=== PATIENT | female | born 1950 | race Caucasian/White ===

== ENCOUNTER 2017-06-29 10:18 | Outpatient (CLI) | payer MEDICARE, OTHER | END 2017-06-29 10:19 | disposition home or self-care (01) | LOC: BICRAD 10:18 | PROVIDERS: ATTEND Internal Medicine Rheumatology | DX: M06.4 Inflammatory polyarthropathy (principal); M17.0 Bilateral primary osteoarthritis of knee; M81.0 Age-related osteoporosis without current pathological fracture ==

== ENCOUNTER 2017-07-02 09:01 | Outpatient (CLI) | payer MEDICARE, OTHER | END 2017-07-02 09:02 | disposition home or self-care (01) | LOC: BICMAMMO 09:01 | PROVIDERS: ATTEND Internal Medicine Rheumatology | DX: M81.0 Age-related osteoporosis without current pathological fracture (principal); M85.859 Other specified disorders of bone density and structure, unspecified thigh | CPT/HCPCS: 77080 ==

== ENCOUNTER 2017-10-10 17:02 | Emergency (ER) | payer MEDICARE, OTHER ==
--- NOTE | 2017-10-10 18:22 | CT ---
CT OF THE BRAIN WITHOUT CONTRAST: 10/10/17 INDICATION: History of headache. COMPARISON: None. FINDINGS/IMPRESSION: No acute infarct, hemorrhage, or hydrocephalus is present. Septum pellucidum and third ventricle are midline. Skull and extracranial soft tissues appear within normal limits. POS: [facility]
[2017-10-10] MEDS ORDERED: Metoclopramide HCl 10 MG/2 ML VIAL ONE (18:36)
[2017-10-10] MEDS ORDERED: diphenhydrAMINE 50 MG/ML VIAL ONE (18:36)
[2017-10-10 18:39] LABS: #Basophils 0.1 thou/uL (0.0-0.2); #Eosinphils 0.1 thou/uL (0.0-0.7); #Lymphocytes 2.2 thou/uL (1.20-3.40); #Monocytes 0.7 thou/uL (0.11-0.59); #Neutrophils 6.9 thou/uL (1.40-6.50); %Basophils 0.5 % (0.0-1.0); %Eosinophils 0.5 % (0.0-10.0); %Lymphocytes 22.3 % (21.0-51.0); %Monocytes 7.3 % (0.0-10.0); %Neutrophils 69.3 % (42.0-75.0); Hemoglobin 11.4 g/dL (12.0-16.0); Mean Corpuscular Hemoglobin 33.4 pg (27.0-31.0); Mean Corpuscular Volume 95.5 fL (78.0-98.0); Mean Platelet Volume 7.5 fL (7.4-10.4); Platelet Count 371 thou/uL (130-400); RBC Distribution Width 13.7 % (11.5-14.5); Red Blood Cell (RBC) Count 3.42 mill/uL (4.20-5.40)
[2017-10-10 18:51] LABS: Bilirubin Negative (Negative); Blood, Urine Negative (Negative); Clarity CLOUDY (Clear); Glucose, Urine (Dipstick) Negative (Negative); Leukocyte Negative (Negative); Nitrite Negative (Negative); Protein, Urine (Dipstick) Negative (Neg-Trace); Specific Gravity, Urine 1.007 (1.002-1.036); Urobilinogen 0.2 mg/dL (0.2-1.0)
[2017-10-10 19:00] LABS: ALT (SGPT) 13 U/L (8-55); AST (SGOT) 25 U/L (5-34); Albumin 4.5 g/dL (3.4-4.8); Alkaline Phosphatase 82 U/L (40-150); Anion Gap 12 mmol/L (10-20); BUN (Urea Nitrogen) 17 mg/dL (9.8-20.1); Bilirubin, Total 0.5 mg/dL (0.2-1.2); CK (CPK) 33 U/L (29-168); Calc. Creatinine Clearance 0 mL/min (70-130); Calcium 9.8 mg/dL (7.8-10.44); Carbon Dioxide 24 mmol/L (23-31); Chloride 103 mmol/L (98-107); Estimated GFR-MDRD 71; Globulin 3.3 g/dL (2.4-3.5); Glucose 114 mg/dL (80-115); Potassium 3.9 mmol/L (3.5-5.1); Protein, Total 7.8 g/dL (6.0-8.3); Sodium 135 mmol/L (136-145)
[2017-10-10 19:06] LABS: Troponin I Less than 0.010 ng/mL (< 0.028)
--- NOTE | 2017-10-10 20:17 | RAD ---
AP VIEW OF THE CHEST: 10/10/17 INDICATION: Dizziness and blurred vision. FINDINGS: Chronic lung changes are stable. Metallic fragments overlying the left chest wall is similar. Cardiom egaly is similar. Postsurgical changes of the cervical spine with thoracolumbar scoliosis is similar. No acute osseous abnormality is evident. IMPRESSION: No acute abnormality. POS: [facility]
== END 2017-10-10 22:19 | disposition home or self-care (01) ==
LOC: ERS 17:02
DX: E86.0 Dehydration (principal); F17.210 Nicotine dependence, cigarettes, uncomplicated; Z79.899 Other long term (current) drug therapy
CPT/HCPCS: 70450; 71045; 80053; 81003; 82553; 84484; 85025; 87086; 96361; 96374; 96375; J1200; J2765

== ENCOUNTER 2017-10-19 10:52 | Outpatient (CLI) | payer MEDICARE, OTHER ==
--- NOTE | 2017-10-19 12:23 | CT ---
CT CHEST WITHOUT CONTRAST PULMONARY LUNG SCREENING: HISTORY: Z12.2, screening for lung cancer. COMPARISON: Chest radiograph from 10/10/2017. CT chest from 04/05/2016. FINDINGS Lung screening (Lung-RADS): Negative. No suspicious pulmonary nodules per lung-RADS criteria. Lung-RADS category S-Negative. No abnormal findings requiring urgent additional evaluation. Pulmonary incidentals: There is progressive peripheral honeycombing with an apical basilar gradient. Worsening peripheral interstitial thickening. There is moderate emphysema. Other incidentals: Pulmonary trunk size at the upper limits of normal, measuring 3 cm. Aortic conto ur is nonaneurysmal. No pericardial effusion. Moderate atherosclerotic plaque of the aorta. Incomplete evaluation of ACDF hardware. Area of sclerosis in the right anterior fifth rib is new, li al healing fracture. There are radiopacities along the left hemithorax and chest wall, unchanged. No thoracic spine compression fracture. IMPRESSION: 1. Lung-RADS category 1-Negative. Recommend continued annual screening with low dose CT in 12 month s. 2. Lung-RADS category S-Negative. No significant incidental findings requiring urgent additional wo rkup. POS: [facility]
== END 2017-10-19 10:53 | disposition home or self-care (01) ==
LOC: CT 10:52
PROVIDERS: ATTEND Family Medicine
DX: F17.210 Nicotine dependence, cigarettes, uncomplicated (principal)
CPT/HCPCS: G0297

== ENCOUNTER 2018-01-31 09:42 | Outpatient (CLI) | payer MEDICARE, OTHER | END 2018-01-31 09:43 | disposition home or self-care (01) | LOC: BICMAMMO 09:42 | PROVIDERS: ATTEND Obstetrics & Gynecology | DX: Z12.31 Encounter for screening mammogram for malignant neoplasm of breast (principal); Z85.41 Personal history of malignant neoplasm of cervix uteri; Z80.3 Family history of malignant neoplasm of breast | CPT/HCPCS: 77063; 77067 ==

== ENCOUNTER 2018-11-08 08:58 | Outpatient (CLI) | payer MEDICARE, OTHER ==
--- NOTE | 2018-11-08 11:32 | CT ---
CT PULMONARY LUNG SCAN: INDICATION: Low dose lung cancer screening CT with a history of smoking for over 30 years. Quit almost 1 year ag o. COMPARISON: Lung cancer screening CT dated 10/19/2017 and 04/05/2016. FINDINGS: There is a new 7.4 mm spiculated pulmonary nodule within the posterior segment of the right upper lob e on image 36 of series 2. The moderate to severe paraseptal and centrilobular emphysema is stable. No additional suspicious pulmonary nodule is evident. There is an area of subsegmental volume loss within the left lower lobe. There are coronary artery thoracic aortic calcifications. Adrenal gland s are within normal limits. No acute osseous abnormality is evident. IMPRESSION: Lung RADS category 3 - positive: indeterminate requiring low-dose CT followup. There is a new solid nodule measuring 7 mm within the right upper lobe. RECOMMENDATION: Low dose CT followup in 3 months. POS: [facility]
== END 2018-11-08 08:59 | disposition home or self-care (01) ==
LOC: CT 08:58
PROVIDERS: ATTEND Family Medicine
DX: Z00.00 Encounter for general adult medical examination without abnormal findings (principal); F17.210 Nicotine dependence, cigarettes, uncomplicated; R91.1 Solitary pulmonary nodule
CPT/HCPCS: G0297

== ENCOUNTER 2019-02-04 10:03 | Outpatient (CLI) | payer MEDICARE, OTHER ==
--- NOTE | 2019-02-04 11:58 | CT ---
LOW DOSE CT SCAN OF THE CHEST WITHOUT IV CONTRAST FOR LUNG CANCER SCREENING: Date: 02/04/19 HISTORY: Smoking for over 30 years. COMPARISON: 11/08/18. FINDINGS: The 7 mm pulmonary nodule in the posterior segment of the right upper lobe on image 36, series 2, is stable. No new nodular densities are seen. Moderate to severe paraseptal and centrilobular emphysema is again seen. Peripheral honeycombing is r edemonstrated. No pleural or pericardial effusions are seen. There are vascular calcifications without evidence of a neurysmal dilatation of the abdominal aorta. There are degenerative changes in the spine. IMPRESSION: Lung-RADS Category 3 - Probably benign. RECOMMENDATION: A 6 month follow-up LDCT is recommended. POS: [facility]
== END 2019-02-04 10:04 | disposition home or self-care (01) ==
LOC: CT 10:03
PROVIDERS: ATTEND Family Medicine
DX: F17.210 Nicotine dependence, cigarettes, uncomplicated (principal); R91.1 Solitary pulmonary nodule
CPT/HCPCS: G0297

== ENCOUNTER 2019-02-05 13:57 | Outpatient (CLI) | payer MEDICARE, OTHER ==
--- NOTE | 2019-02-05 13:19 | MMO ---
Bilateral MAMMO Bilat Screen [facility]. CLINICAL HISTORY: Patient is 68 years old and is seen for screening. VIEWS: The views performed were: bilateral craniocaudal with tomosynthesis and bilateral mediolateral oblique with tomosynthesis. FILMS COMPARED: The present examination has been compared to prior imaging studies performed at [facility] on 01/01/2015, 01/03/2016, 01/18/2017 and 01/31/2018. This study has been interpreted with the assistance of computer-aided detection. MAMMOGRAM FINDINGS: The breasts are heterogeneously dense, which could obscure a lesion on mammography. There are stable benign appearing calcifications seen in the right breast. There are no suspicious masses, suspicious calcifications, or new areas of architectural distortion. IMPRESSION: THERE IS NO MAMMOGRAPHIC EVIDENCE OF MALIGNANCY. A ROUTINE FOLLOW-UP MAMMOGRAM IN 1 YEAR IS RECOMMENDED. THE RESULTS OF THIS EXAM WERE SENT TO THE PATIENT. ACR BI-RADS Category 2 - Benign finding MAMMOGRAPHY NOTE: 1. A negative mammogram report should not delay a biopsy if a dominant of clinically suspicious mass is present. 2. Approximately 10% to 15% of breast cancers are not detected by mammography. 3. Adenosis and dense breasts may obscure an underlying neoplasm. Reported by: RUPA BURT MD Electonically Signed: [id number]
== END 2019-02-05 13:58 | disposition home or self-care (01) ==
LOC: BICMAMMO 13:57
PROVIDERS: ATTEND Obstetrics & Gynecology
DX: Z12.31 Encounter for screening mammogram for malignant neoplasm of breast (principal)
CPT/HCPCS: 77063; 77067

== ENCOUNTER 2019-04-28 13:23 | Outpatient (CLI) | payer MEDICARE, OTHER | END 2019-04-28 13:24 | disposition home or self-care (01) | LOC: ULT 13:23 | PROVIDERS: ATTEND Family Medicine | DX: R01.1 Cardiac murmur, unspecified (principal); I08.1 Rheumatic disorders of both mitral and tricuspid valves | CPT/HCPCS: 93306 ==

== ENCOUNTER 2019-09-23 10:47 | Outpatient (CLI) | payer MEDICARE, OTHER ==
--- NOTE | 2019-09-23 11:40 | CT ---
LOW DOSE CT SCAN OF CHEST WITHOUT IV CONTRAST FOR LUNG CANCER SCREENING: Date: 09/23/2019 HISTORY: Patient has a 38 year, 1 pack per day, smoking history. Quit smoking 3 years ago. Nicotine dependence . COMPARISON: 02/04/2019. FINDINGS: The 7.0 mm nodule in the posterior segment of the right upper lobe on image 43, series 2, is stable. No new nodular densities are seen. Moderate to severe paraseptal and centrilobular emphysema is again seen. Peripheral honeycombing is r edemonstrated. No pleural or pericardial effusions are seen. There are vascular calcifications without evidence of a neurysmal dilatation of the abdominal aorta. There are degenerative changes in the spine. IMPRESSION: Lung-RADS 3 - Probably benign. RECOMMENDATION: A 6 month follow-up LDCT is recommended. POS: [facility]
== END 2019-09-23 10:48 | disposition home or self-care (01) ==
LOC: CT 10:47
PROVIDERS: ATTEND Family Medicine
DX: Z12.2 Encounter for screening for malignant neoplasm of respiratory organs (principal); F17.210 Nicotine dependence, cigarettes, uncomplicated; R91.1 Solitary pulmonary nodule
CPT/HCPCS: G0297

== ENCOUNTER 2020-02-09 10:06 | Outpatient (CLI) | payer MEDICARE, OTHER ==
--- NOTE | 2020-02-09 11:18 | ULT ---
BILATERAL CAROTID DUPLEX ULTRASOUND: HISTORY: Left carotid bruit TECHNIQUE: Grayscale, color-flow and spectral Doppler ultrasound imaging of the extracranial carotid artery syst ems was performed bilaterally. FINDINGS: There is plaque formation in the left proximal ICA and carotid bulb The peak systolic velocity in the right ICA measures 100 cm/s with an end-diastolic velocity of 28 cm /s and a systolic ratio of 0.94. The peak systolic velocity in the left ICA measures 127 cm/s with an end-diastolic velocity of 45 cm/s and a systolic ratio of 1.31. Flow in both vertebral arteries remains antegrade. IMPRESSION: Moderate (50-69%) stenosis of the left ICA
--- NOTE | 2020-02-09 11:40 | MMO ---
Bilateral MAMMO Bilat Screen [facility]. CLINICAL HISTORY: Patient is 69 years old and is seen for screening. The patient has the following family history of breast cancer: maternal aunt, malignant (generic). The patient has no personal history of cancer. VIEWS: The views performed were: bilateral craniocaudal with tomosynthesis and bilateral mediolateral oblique with tomosynthesis. FILMS COMPARED: The present examination has been compared to prior imaging studies performed at [facility] on 01/03/2016, 01/18/2017, 01/31/2018 and 02/05/2019. This study has been interpreted with the assistance of computer-aided detection. MAMMOGRAM FINDINGS: The breasts are heterogeneously dense, which could obscure a lesion on mammography. Benign calcifications are noted bilaterally. There are no suspicious masses, suspicious calcifications, or new areas of architectural distortion. IMPRESSION: THERE IS NO MAMMOGRAPHIC EVIDENCE OF MALIGNANCY. A ROUTINE FOLLOW-UP MAMMOGRAM IN 1 YEAR IS RECOMMENDED. THE RESULTS OF THIS EXAM WERE SENT TO THE PATIENT. ACR BI-RADS Category 2 - Benign finding MAMMOGRAPHY NOTE: 1. A negative mammogram report should not delay a biopsy if a dominant of clinically suspicious mass is present. 2. Approximately 10% to 15% of breast cancers are not detected by mammography. 3. Adenosis and dense breasts may obscure an underlying neoplasm. Reported by: PRASHANTH JOYNER MD Electonically Signed: [id number]
== END 2020-02-09 10:07 | disposition home or self-care (01) ==
LOC: BICULT 10:06
PROVIDERS: ATTEND Family Medicine
DX: Z12.31 Encounter for screening mammogram for malignant neoplasm of breast (principal); R09.89 Other specified symptoms and signs involving the circulatory and respiratory systems; I65.22 Occlusion and stenosis of left carotid artery; Z80.3 Family history of malignant neoplasm of breast
CPT/HCPCS: 77063; 77067; 93880

== ENCOUNTER 2020-07-11 16:47 | Inpatient (IN) | payer MEDICARE, OTHER ==
[2020-07-11] MEDS ORDERED: HYDROcodone/Acetaminophen 5/325 mg Tablet ONE (17:26)
[2020-07-11] MEDS ORDERED: Morphine 4 MG/ML VIAL ONE ×2 (17:43→22:02)
[2020-07-11 18:15] LABS: #Basophils 0.1 thou/uL (0.0-0.2); #Eosinphils 0.1 thou/uL (0.0-0.7); #Lymphocytes 2.5 thou/uL (1.20-3.40); #Monocytes 1.1 thou/uL (0.11-0.59); #Neutrophils 8.9 thou/uL (1.40-6.50); %Basophils 0.8 % (0.0-1.0); %Eosinophils 1.1 % (0.0-10.0); %Lymphocytes 19.8 % (21.0-51.0); %Monocytes 8.3 % (0.0-10.0); Hemoglobin 9.3 g/dL (12.0-16.0); Mean Corpuscular HGB CONC 32.9 g/dL (32.0-36.0); Mean Corpuscular Hemoglobin 31.3 pg (27.0-31.0); Mean Corpuscular Volume 94.9 fL (78.0-98.0); Mean Platelet Volume 7.4 fL (7.4-10.4); Platelet Count 409 thou/uL (130-400); RBC Distribution Width 14.3 % (11.5-14.5); Red Blood Cell (RBC) Count 2.97 mill/uL (4.20-5.40); White Blood Cell (WBC) Count 12.7 thou/uL (4.8-10.8)
[2020-07-11 18:34] LABS: Anion Gap 14 mmol/L (10-20); BUN (Urea Nitrogen) 17 mg/dL (9.8-20.1); CRP (Inflammatory) 4.17 mg/dL (= or < 0.5); Calc. Creatinine Clearance 0 mL/min (70-130); Calcium 10.2 mg/dL (7.8-10.44); Carbon Dioxide 23 mmol/L (23-31); Chloride 103 mmol/L (98-107); Glucose 92 mg/dL (83-110); Potassium 3.4 mmol/L (3.5-5.1); Sodium 137 mmol/L (136-145)
[2020-07-11] MEDS ORDERED: Bupivacaine 0.5% 10 ML VIAL ONE (20:11)
[2020-07-11] MEDS ORDERED: cefTRIAXone\\ROCEPHIN 1 GM VIAL ONE (21:59)
[2020-07-11] MEDS ORDERED: Sodium Chloride 0.9% 100 ML ONE (21:59)
[2020-07-11] MEDS ORDERED: Calcium Carbonate 500 MG ChewTAB PO PRN (22:02)
[2020-07-11] MEDS ORDERED: Senokot S 8.6-50 MG TAB PO PRN (22:02)
[2020-07-11] MEDS ORDERED: Acetaminophen 325 MG TAB PO PRN (22:02)
[2020-07-11] MEDS ORDERED: Bisacodyl 10 MG SUPP PR PRN (22:02)
[2020-07-11] MEDS ORDERED: Ondansetron PF 4 MG/2 ML Vial IVP PRN (22:02)
[2020-07-11] MEDS ORDERED: Guaifenesin DM 100-10/5 ML UDCUP PO PRN (22:02)
[2020-07-11] MEDS ORDERED: Ondansetron ODT 4 MG TAB PO PRN (22:02)
[2020-07-11] MEDS ORDERED: Morphine 4 MG/ML VIAL SLOW IVP PRN (22:04)
[2020-07-11] MEDS ORDERED: Vancomycin 1.5 GRAM/300 ML BAG 1.5 GM in Premix Bag 1 BAG IVPB SCH (22:15)
[2020-07-11] MEDS ORDERED: cefTRIAXone\\ROCEPHIN 1 GM in Sodium Chloride 0.9% 100 ML IVPB SCH (22:30)
[2020-07-11 22:31] LABS: Body Fluid Source Synovial Fluid
[2020-07-11 22:32] LABS: BF Color Red; Clarity Cloudy/Turbid (Clear); Tube # SYRINGE
[2020-07-11 22:59] LABS: BF Segmented Neutrophils 95 %; Cell Count Non Hematic 5 %
[2020-07-11] MEDS: HYDROcodone/Acetaminophen 5/325 mg Tablet PO PRN (23:37)
[2020-07-11 23:49] VITALS: BMI 23.2
[2020-07-12] MEDS ORDERED: Morphine 4 MG/ML VIAL SLOW IVP PRN (00:11)
[2020-07-12] MEDS: Morphine 4 MG/ML VIAL SLOW IVP PRN ×3 (01:03→21:33)
[2020-07-12] MEDS: Zolpidem Tartrate 5 MG TAB PO PRN (01:47)
[2020-07-12 06:46] LABS: #Lymphocytes 1.7 thou/uL (1.20-3.40); #Monocytes 1.3 thou/uL (0.11-0.59); #Neutrophils 13.8 thou/uL (1.40-6.50); %Basophils 0.2 % (0.0-1.0); %Eosinophils 0.1 % (0.0-10.0); %Lymphocytes 9.9 % (21.0-51.0); %Neutrophils 81.8 % (42.0-75.0); Hemoglobin 9.1 g/dL (12.0-16.0); Mean Corpuscular HGB CONC 32.8 g/dL (32.0-36.0); Mean Corpuscular Hemoglobin 31.2 pg (27.0-31.0); Mean Corpuscular Volume 95.2 fL (78.0-98.0); Mean Platelet Volume 7.3 fL (7.4-10.4); Platelet Count 406 thou/uL (130-400); RBC Distribution Width 14.3 % (11.5-14.5); Red Blood Cell (RBC) Count 2.92 mill/uL (4.20-5.40); White Blood Cell (WBC) Count 16.9 thou/uL (4.8-10.8)
[2020-07-12 07:05] LABS: ALT (SGPT) 39 U/L (8-55); AST (SGOT) 63 U/L (5-34); Albumin 4.1 g/dL (3.4-4.8); Alkaline Phosphatase 84 U/L (40-110); Anion Gap 14 mmol/L (10-20); BUN (Urea Nitrogen) 10 mg/dL (9.8-20.1); Bilirubin, Total 0.5 mg/dL (0.2-1.2); Calc. Creatinine Clearance 64 mL/min (70-130); Calcium 9.1 mg/dL (7.8-10.44); Carbon Dioxide 23 mmol/L (23-31); Chloride 100 mmol/L (98-107); Globulin 3.3 g/dL (2.4-3.5); Glucose 124 mg/dL (83-110); Potassium 3.6 mmol/L (3.5-5.1); Protein, Total 7.4 g/dL (5.8-8.1); Sodium 133 mmol/L (136-145)
[2020-07-12] MEDS: Multivitamin W/ Minerals 1 TAB PO SCH (08:31)
[2020-07-12] MEDS: Cholecalciferol 1,000 UNITS (25 MCG) TAB PO SCH (08:31)
[2020-07-12] MEDS: Famotidine 20 MG TAB PO SCH ×2 (08:31→21:34)
[2020-07-12] MEDS: Fish Oil 1,000 MG CAP PO SCH (08:31)
[2020-07-12] MEDS ORDERED: Non-Formulary Item 1 EACH (Omega-3/Dha/Epa/Fish Oil [Fish Oil 1,000 Mg Softgel] 1 CAP Cap PO SCH (09:00)
[2020-07-12] MEDS ORDERED: predniSONE 5 MG TAB PO SCH (09:00)
[2020-07-12] MEDS ORDERED: Non-Formulary Item 1 EACH (Multivitamin With Minerals [Multiple Vitamin] 1 TABLET Tablet) PO SCH (09:00)
[2020-07-12] MEDS ORDERED: Non-Formulary Item 1 EACH (Cholecalciferol (Vitamin D3) [Vitamin D3] 1,000 UNIT Capsule) PO SCH (09:00)
[2020-07-12] MEDS: HYDROcodone/Acetaminophen 5/325 mg Tablet PO PRN (13:31)
[2020-07-12] MEDS ORDERED: predniSONE 20 MG TAB PO SCH (14:00)
[2020-07-12 15:10] LABS: SARS-CoV-2 PCR by NAA Not Detected (NotDetected)
[2020-07-12] MEDS ORDERED: Vancomycin 1 GM in Premix Bag 1 BAG IVPB SCH (21:00)
[2020-07-12] MEDS ORDERED: diphenhydrAMINE 25 MG CAP PO PRN (21:50)
[2020-07-12] MEDS ORDERED: cefTRIAXone\\ROCEPHIN 2 GM in Sodium Chloride 0.9% 100 ML IVPB SCH (22:00)
[2020-07-13] MEDS: HYDROcodone/Acetaminophen 5/325 mg Tablet PO PRN (05:48)
[2020-07-13] MEDS: Fish Oil 1,000 MG CAP PO SCH (09:03)
[2020-07-13] MEDS: Famotidine 20 MG TAB PO SCH ×2 (09:03→20:42)
[2020-07-13] MEDS: Cholecalciferol 1,000 UNITS (25 MCG) TAB PO SCH (09:03)
[2020-07-13] MEDS: Multivitamin W/ Minerals 1 TAB PO SCH (09:03)
[2020-07-13] MEDS: predniSONE 20 MG TAB PO SCH (09:04)
[2020-07-13 20:35] LABS: Vancomycin, Trough 5.5 ug/mL
[2020-07-13] MEDS: Zolpidem Tartrate 5 MG TAB PO PRN (21:21)
[2020-07-14] MEDS: Famotidine 20 MG TAB PO SCH (08:15)
[2020-07-14] MEDS: Multivitamin W/ Minerals 1 TAB PO SCH (08:16)
[2020-07-14] MEDS: Fish Oil 1,000 MG CAP PO SCH (08:16)
[2020-07-14] MEDS: predniSONE 20 MG TAB PO SCH (08:16)
[2020-07-14] MEDS: Cholecalciferol 1,000 UNITS (25 MCG) TAB PO SCH (08:16)
[2020-07-14 09:57] VITALS: BP 158/71; TEMP 97.9
== END 2020-07-14 10:00 | disposition home or self-care (01) | DRG 558 ==
LOC: ERS 16:47 → T4-A 21:04 → OBSVTOIN 07-12 08:11
PROVIDERS: ADMIT Internal Medicine; ATTEND Internal Medicine
PROC: 0R9N3ZX Drainage of Right Wrist Joint, Percutaneous Approach, Diagnostic (ICD-10-PCS; principal; 2020-07-12)
DX: M65.831 Other synovitis and tenosynovitis, right forearm (principal); M06.9 Rheumatoid arthritis, unspecified; D63.8 Anemia in other chronic diseases classified elsewhere; Z20.822 Contact with and (suspected) exposure to COVID-19; E87.6 Hypokalemia; I73.00 Raynaud's syndrome without gangrene; F17.210 Nicotine dependence, cigarettes, uncomplicated; Z88.8 Allergy status to other drugs, medicaments and biological substances; Z91.013 Allergy to seafood; Z79.899 Other long term (current) drug therapy; Z79.52 Long term (current) use of systemic steroids; Z90.49 Acquired absence of other specified parts of digestive tract; Z90.710 Acquired absence of both cervix and uterus
CPT/HCPCS: 20605; 36415; 80048; 80053; 80202; 82945; 85025; 85652; 86140; 87070; 87205; 87635; 89051; 89060; 96365; 96367; 96372; 96375; 96376; G0378; J0696; J2270; J2405; J3370; J3490; J7512; Q0163; U0003; U0005

== ENCOUNTER 2020-07-26 15:23 | Outpatient (CLI) | payer MEDICARE, OTHER | END 2020-07-26 15:24 | disposition home or self-care (01) | LOC: BICCT 15:23 | PROVIDERS: ATTEND Family Medicine | DX: Z12.2 Encounter for screening for malignant neoplasm of respiratory organs (principal); Z87.891 Personal history of nicotine dependence; J84.10 Pulmonary fibrosis, unspecified | CPT/HCPCS: 71271 ==

== ENCOUNTER 2021-02-10 10:30 | Outpatient (CLI) | payer MEDICARE, OTHER | END 2021-02-10 10:31 | disposition home or self-care (01) | LOC: BICMAMMO 10:30 | PROVIDERS: ATTEND Family Medicine | DX: Z12.31 Encounter for screening mammogram for malignant neoplasm of breast (principal); Z80.3 Family history of malignant neoplasm of breast | CPT/HCPCS: 77063; 77067 ==

== ENCOUNTER 2021-07-27 10:25 | Outpatient (CLI) | payer MEDICARE, OTHER | END 2021-07-27 10:26 | disposition home or self-care (01) | LOC: BICCT 10:25 | PROVIDERS: ATTEND Family Medicine | DX: Z12.2 Encounter for screening for malignant neoplasm of respiratory organs (principal); Z87.891 Personal history of nicotine dependence; M48.54XA Collapsed vertebra, not elsewhere classified, thoracic region, initial encounter for fracture | CPT/HCPCS: 71271 ==

== ENCOUNTER 2022-02-13 09:46 | Outpatient (CLI) | payer MEDICARE, OTHER | END 2022-02-13 09:47 | disposition home or self-care (01) | LOC: BICMAMMO 09:46 | PROVIDERS: ATTEND Family Medicine | DX: Z12.31 Encounter for screening mammogram for malignant neoplasm of breast (principal); Z80.3 Family history of malignant neoplasm of breast | CPT/HCPCS: 77063; 77067 ==

== ENCOUNTER 2022-08-16 10:08 | Inpatient (IN) | payer MEDICARE, OTHER ==
[~2022-08-16 10:08] MED LIST: Iopamidol-370 76% 500 ML MDV (1 ML CHARGE) ONE
[2022-08-16 11:02] LABS: #Basophils 0.1 thou/uL (0.0-0.2); #Eosinphils 0.1 thou/uL (0.0-0.7); #Monocytes 0.6 thou/uL (0.11-0.59); #Neutrophils 9.6 thou/uL (1.40-6.50); %Basophils 0.7 % (0.0-1.0); %Eosinophils 0.8 % (0.0-10.0); %Lymphocytes 7.3 % (21.0-51.0); %Monocytes 5.3 % (0.0-10.0); %Neutrophils 85.3 % (42.0-75.0); Mean Corpuscular HGB CONC 30.7 g/dL (32.0-36.0); Mean Corpuscular Hemoglobin 30.3 pg (27.0-31.0); Mean Corpuscular Volume 98.7 fl (78.0-98.0); Mean Platelet Volume 9.2 fL (7.4-10.4); Platelet Count 513 10x3/uL (130-400); RBC Distribution Width 16.9 % (11.5-14.5); Red Blood Cell (RBC) Count 2.97 mill/uL (4.20-5.40); White Blood Cell (WBC) Count 11.2 10x3/uL (4.8-10.8)
[2022-08-16 11:26] LABS: ALT (SGPT) 23 U/L (8-55); AST (SGOT) 33 U/L (5-34); Albumin 4.5 g/dL (3.4-4.8); Alkaline Phosphatase 92 U/L (40-110); Anion Gap 14 mmol/L (10-20); BUN (Urea Nitrogen) 20 mg/dL (9.8-20.1); Bilirubin, Total 0.4 mg/dL (0.2-1.2); Calc. Creatinine Clearance 0 mL/min (70-130); Calcium 10.1 mg/dL (7.8-10.44); Carbon Dioxide 22 mmol/L (23-31); Chloride 103 mmol/L (98-107); Estimated GFR 71; Globulin 3.5 g/dL (2.4-3.5); Glucose 111 mg/dL (83-110); Potassium 4.3 mmol/L (3.5-5.1); Sodium 135 mmol/L (136-145)
[2022-08-16] MEDS ORDERED: methylPREDNISolone Sod Succ 40 MG VIAL ONE (12:19)
[2022-08-16] MEDS ORDERED: Aspirin 325 MG TAB ONE (12:19)
[2022-08-16] MEDS ORDERED: Famotidine/PF 20 mg/2ml Vial ONE (12:19)
[2022-08-16] MEDS ORDERED: diphenhydrAMINE 50 MG/ML VIAL ONE (12:19)
[2022-08-16] MEDS ORDERED: cefTRIAXone (ROCEPHIN) 2 GM VIAL ONE (15:19)
[2022-08-16 15:52] LABS: Troponin I 0.155 ng/mL (< 0.028)
[2022-08-16] MEDS ORDERED: Acetaminophen 325 MG TAB PO PRN (15:56)
[2022-08-16] MEDS ORDERED: Cefepime 2 GM VIAL ONE (15:56)
[2022-08-16] MEDS ORDERED: Sodium Chloride 0.9% 1,000 ML IV SCH (16:00)
[2022-08-16 18:39] VITALS: BMI 21.0
[2022-08-16 19:04] LABS: Troponin I 0.093 ng/mL (< 0.028)
[2022-08-16] MEDS: Azithromycin 500 MG in Sodium Chloride 0.9% 250 ML 250 ML IVPB SCH (19:15)
[2022-08-16] MEDS: Losartan 25 MG TAB PO SCH (21:06)
[2022-08-16] MEDS: sulfaSALAzine 500 MG TAB PO SCH (21:06)
[2022-08-17] MEDS: Cefepime 2 GM in Sodium Chloride 0.9% 100 ML IVPB SCH ×2 (04:13→15:08)
[2022-08-17 04:14] LABS: #Basophils 0.1 thou/uL (0.0-0.2); #Eosinphils 0.1 thou/uL (0.0-0.7); #Monocytes 0.9 thou/uL (0.11-0.59); #Neutrophils 6.2 thou/uL (1.40-6.50); %Basophils 0.5 % (0.0-1.0); %Eosinophils 1.3 % (0.0-10.0); %Lymphocytes 23.3 % (21.0-51.0); %Monocytes 9.5 % (0.0-10.0); %Neutrophils 65.2 % (42.0-75.0); Hemoglobin 8.4 g/dL (12.0-16.0); Mean Corpuscular HGB CONC 32.1 g/dL (32.0-36.0); Mean Corpuscular Hemoglobin 31.2 pg (27.0-31.0); Mean Corpuscular Volume 97.4 fl (78.0-98.0); Mean Platelet Volume 9.1 fL (7.4-10.4); Platelet Count 431 10x3/uL (130-400); RBC Distribution Width 17.1 % (11.5-14.5); Red Blood Cell (RBC) Count 2.69 mill/uL (4.20-5.40); White Blood Cell (WBC) Count 9.6 10x3/uL (4.8-10.8)
[2022-08-17 04:39] LABS: Anion Gap 11 mmol/L (10-20); BUN (Urea Nitrogen) 15 mg/dL (9.8-20.1); Calc. Creatinine Clearance 49 mL/min (70-130); Calcium 9.3 mg/dL (7.8-10.44); Carbon Dioxide 22 mmol/L (23-31); Chloride 111 mmol/L (98-107); Estimated GFR 71; Glucose 90 mg/dL (83-110); Potassium 4.3 mmol/L (3.5-5.1); Sodium 140 mmol/L (136-145)
[2022-08-17] MEDS: Aspirin Chewable 81 MG TAB PO SCH (09:04)
[2022-08-17] MEDS: sulfaSALAzine 500 MG TAB PO SCH ×2 (09:04→20:47)
[2022-08-17] MEDS: predniSONE 5 MG TAB PO SCH (09:04)
[2022-08-17] MEDS: Azithromycin 500 MG in Sodium Chloride 0.9% 250 ML 250 ML IVPB SCH (16:58)
[2022-08-17] MEDS ORDERED: cloNIDine 0.1 MG TAB PO PRN (17:50)
[2022-08-17] MEDS: Losartan 25 MG TAB PO SCH (20:47)
[2022-08-18] MEDS: Cefepime 2 GM in Sodium Chloride 0.9% 100 ML IVPB SCH (03:47)
[2022-08-18 04:26] LABS: INR-International Normal Ratio 1.1; PTT 45.5 sec (22.9-36.1); Prothrombin Time 14.2 sec (12.0-14.7)
[2022-08-18 08:56] VITALS: TEMP 97.7
[2022-08-18] MEDS: sulfaSALAzine 500 MG TAB PO SCH (10:21)
[2022-08-18] MEDS: Aspirin Chewable 81 MG TAB PO SCH (10:21)
[2022-08-18] MEDS: predniSONE 5 MG TAB PO SCH (10:21)
[2022-08-18 12:22] LABS: Bilirubin Negative (Negative); Blood, Urine Negative (Negative); Clarity Clear (Clear); Glucose, Urine (Dipstick) Normal (Negative); Ketone, Urine Negative (Negative); Leukocyte Negative Leu/uL (Negative); Nitrite Negative (Negative); Protein, Urine (Dipstick) 10 mg/dL (Neg-Trace); RBC/HPF 0-3 HPF (0-3); Specific Gravity, Urine 1.016 (1.002-1.036); Squamous Epithelial 0-3 HPF (0-3); Urobilinogen Normal mg/dL (Less than 2); WBC/HPF 0-3 HPF (0-3); pH, Urine 5.5 (5.0-9.0)
[2022-08-18 12:33] LABS: Bacteria/HPF 1+ HPF (None Seen)
[2022-08-18 12:34] LABS: Strep pneumo Urine Ag NEGATIVE (NEGATIVE)
[2022-08-18 15:52] VITALS: BP 174/79
[2022-08-21 21:36] LABS: L.pneumophilia Abs <0.91 OD ratio (0.00-0.90)
[2022-08-21 23:12] LABS: Mycoplasma pneumoniae IgG AB 109 U/mL (0-99); Mycoplasma pneumoniae IgM AB Less than 770 U/mL (0-769)
== END 2022-08-18 15:34 | disposition home or self-care (01) | DRG 193 ==
LOC: ERS 10:08 → 2NO 17:56
PROVIDERS: ADMIT Family Medicine; ATTEND Internal Medicine
DX: J18.9 Pneumonia, unspecified organism (principal); I21.A1 Myocardial infarction type 2; D84.9 Immunodeficiency, unspecified; R04.2 Hemoptysis; M06.9 Rheumatoid arthritis, unspecified; I10 Essential (primary) hypertension; D64.9 Anemia, unspecified; R59.1 Generalized enlarged lymph nodes; Z88.8 Allergy status to other drugs, medicaments and biological substances; Z91.013 Allergy to seafood; Z90.49 Acquired absence of other specified parts of digestive tract; Z98.890 Other specified postprocedural states; Z90.710 Acquired absence of both cervix and uterus; Z87.891 Personal history of nicotine dependence
CPT/HCPCS: 36415; 71045; 71275; 80048; 80053; 81001; 82553; 83880; 84145; 84484; 85025; 85610; 85730; 86713; 87040; 87070; 87205; 87449; 93005; 93306; 94760; 96365; 96372; 96375; J0456; J0692; J0696; J1200; J1650; J2920; J3490; J7050; J7512; Q9967; S0028

== ENCOUNTER 2022-10-03 12:30 | Outpatient (CLI) | payer MEDICARE, OTHER | END 2022-10-03 12:31 | disposition home or self-care (01) | LOC: PET 12:30 | PROVIDERS: ATTEND Internal Medicine | DX: R91.1 Solitary pulmonary nodule (principal); C34.91 Malignant neoplasm of unspecified part of right bronchus or lung | CPT/HCPCS: 78815; A9552 ==

== ENCOUNTER 2022-10-09 06:56 | Day surgery (SDC) | payer MEDICARE, OTHER ==
[2022-10-05 14:44] VITALS: BMI 19.3
[2022-10-09] MEDS ORDERED: Ipratropium/Albuterol 3 ML NEB ONE (07:55)
[2022-10-09] MEDS ORDERED: Dexmedetomidine 200 MCG/2 ML VIAL ONE (09:20)
[2022-10-09] MEDS ORDERED: Dexamethasone 20 MG/5 ML VIAL ONE (10:03)
[2022-10-09] MEDS ORDERED: PHENYLEPHRINE-NS 100 MCG/ML 10 ML SYRINGE ONE (10:03)
[2022-10-09] MEDS ORDERED: PROPOFOL 200 MG/20 ML VIAL ONE (10:03)
[2022-10-09] MEDS ORDERED: Rocuronium Bromide 10 MG/ML (10ML VIAL) ONE (10:03)
[2022-10-09] MEDS ORDERED: Ondansetron PF 4 MG/2 ML Vial ONE (10:03)
[2022-10-09] MEDS ORDERED: Lidocaine 1% PF 5 ML VIAL ONE (10:03)
== END 2022-10-09 12:25 | disposition home or self-care (01) ==
LOC: SDC 06:56
PROVIDERS: ATTEND Internal Medicine
PROC: 0BBF8ZX Excision of Right Lower Lung Lobe, Via Natural or Artificial Opening Endoscopic, Diagnostic (ICD-10-PCS; principal; 2022-10-09)
PROC: 07D78ZX Extraction of Thorax Lymphatic, Via Natural or Artificial Opening Endoscopic, Diagnostic (ICD-10-PCS; 2022-10-09)
PROC: 0B9F8ZX Drainage of Right Lower Lung Lobe, Via Natural or Artificial Opening Endoscopic, Diagnostic (ICD-10-PCS; 2022-10-09)
DX: C34.31 Malignant neoplasm of lower lobe, right bronchus or lung (principal); R59.0 Localized enlarged lymph nodes; Z91.041 Radiographic dye allergy status; Z91.013 Allergy to seafood; Z88.8 Allergy status to other drugs, medicaments and biological substances; Z87.891 Personal history of nicotine dependence; Z90.710 Acquired absence of both cervix and uterus; Z90.49 Acquired absence of other specified parts of digestive tract; Z79.899 Other long term (current) drug therapy
CPT/HCPCS: 36416; 88112; 88172; 88173; 88305; 88333; 88341; 88342; J1100; J2405; J2704; J7611; J7620